=== PATIENT | female | born 1980 | race Caucasian/White ===

== ENCOUNTER → 2018-10-31 12:28 | Outpatient (CLI) | payer SELFPAY ==
[2018-10-31 14:06] LABS: Absolute Lymphocyte Count 1.45 X10^3/uL (0.83-4.51); Absolute Neutrophil Count 5.9 X10^3/uL (2.0-7.7); Basophil# 0.06 X10^3/uL; Basophil% 0.7 % (0-1); Eosinophil# 0.09 X10^3/uL; Eosinophils% 1.1 % (0-5); Hematocrit 40.5 % (37-47); Hemoglobin 13.2 g/dL (12.0-15.0); Lymphocyte # 1.45 X10^3/ul (4.0); Lymphocyte % 17.9 % (19-41); Mean Corp Hgb Conc 32.6 g/dL (32-36); Mean Corpuscular Hgb 28.1 pg (27.0-32.0); Mean Corpuscular Volume 86.2 fL (81-99); Mean Platelet Vol. 9.7 fl (6.2-12.0); Monocyte# 0.55 X10^3/uL; Monocyte% 6.8 % (0-10); NRBC Flagged by Analyzer 0 % (0-5); Neutrophil # 5.93 X10^3/uL (2.7-7.7); Neutrophil % 73.1 % (47-70); Platelet Count 326 K/mm3 (150-450); RBC Distribution Width CV 12.5 % (11.6-14.6); RBC Distribution Width SD 39.4 fl (35.1-43.9); White Blood Count 8.1 K/mm3 (4.4-11.0)
[2018-10-31 14:22] LABS: Vitamin D,25 Hydroxy 28.3 ng/mL (29.95-100.01)
[2018-10-31 14:29] LABS: ALB/GLOB Ratio 0.9 RATIO (0.9-2.4); AST(SGOT) 9 U/L (15-37); Alanine Aminotransfer ALT/SGPT 20 U/L (13-56); Albumin, Serum 3.8 g/dL (3.2-5.0); Alkaline Phosphatase 93 U/L (45-117); Anion Gap 2 (5-15); BUN 14 mg/dL (7-18); BUN/Creat Ratio 17.5 RATIO (10-20); Calcium,Total 8.6 mg/dL (8.5-10.1); Chloride 108 mmol/L (98-107); Cholesterol 194 mg/dL (200); EST Glomerular Filtration Rate 85 mL/min (>60); Est Glom Filt Rate - Afr Amer 103 mL/min (>60); Globulin 4.1 g/dL (2.2-4.2); Glucose 85 mg/dL (74-106); High Density Lipoprotein 76 mg/dL; Potassium 3.8 mmol/L (3.5-5.1); Protein, Total 7.9 g/dL (6.4-8.2); Sodium Level 139 mmol/L (136-145); Thyroid Stim Hormone (TSH) 1.14 uIU/mL (0.358-3.74); Triglycerides 47 mg/dL; Very Low Density Lipoprotein 9 mg/dL (5-40)
== END ==
DX: F33.2 Major depressive disorder, recurrent severe without psychotic features (principal); F41.1 Generalized anxiety disorder
CPT/HCPCS: 36415; 80053; 80061; 82306; 84443; 85025

== ENCOUNTER → 2020-04-19 13:03 | Outpatient (CLI) | payer SELFPAY ==
[2018-11-19 11:51] VITALS: BMI 29.2
[2020-04-19 15:32] LABS: Absolute Lymphocyte Count 1.43 X10^3/uL (0.83-4.51); Absolute Neutrophil Count 4.3 X10^3/uL (2.0-7.7); Basophil# 0.07 X10^3/uL; Basophil% 1.1 % (0-1); Eosinophil# 0.08 X10^3/uL; Eosinophils% 1.2 % (0-5); Hematocrit 43.1 % (37-47); Hemoglobin 14.2 g/dL (12.0-15.0); Lymphocyte # 1.43 X10^3/ul (4.0); Lymphocyte % 22.3 % (19-41); Mean Corp Hgb Conc 32.9 g/dL (32-36); Mean Corpuscular Hgb 28.7 pg (27.0-32.0); Mean Corpuscular Volume 87.1 fL (81-99); Mean Platelet Vol. 9.4 fl (6.2-12.0); Monocyte# 0.49 X10^3/uL; Monocyte% 7.6 % (0-10); NRBC Flagged by Analyzer 0 % (0-5); Neutrophil # 4.32 X10^3/uL (2.7-7.7); Neutrophil % 67.3 % (47-70); Platelet Count 344 K/mm3 (150-450); RBC Distribution Width CV 12.8 % (11.6-14.6); RBC Distribution Width SD 40.4 fl (35.1-43.9); Red Blood Count 4.95 M/mm3 (4.2-5.4); White Blood Count 6.4 K/mm3 (4.4-11.0)
[2020-04-19 15:56] LABS: Vitamin B12 518 pg/mL (211-911); Vitamin D,25 Hydroxy 62.2 ng/mL
[2020-04-19 16:04] LABS: ALB/GLOB Ratio 1.1 RATIO (0.9-2.4); AST(SGOT) 8 U/L (15-37); Alanine Aminotransfer ALT/SGPT 20 U/L (13-56); Albumin, Serum 3.8 g/dL (3.2-5.0); Alkaline Phosphatase 71 U/L (45-117); Anion Gap 4 (5-15); BUN 12 mg/dL (7-18); BUN/Creat Ratio 15.4 RATIO (10-20); Calcium,Total 8.7 mg/dL (8.5-10.1); Chloride 105 mmol/L (98-107); Creatinine, Serum 0.78 mg/dL (0.55-1.02); EST Glomerular Filtration Rate 87 mL/min (>60); Est Glom Filt Rate - Afr Amer 105 mL/min (>60); Free T3 2.8 pg/mL (2.18-3.98); Globulin 3.6 g/dL (2.2-4.2); Glucose 76 mg/dL (74-106); Potassium 3.9 mmol/L (3.5-5.1); Protein, Total 7.4 g/dL (6.4-8.2); Sodium Level 140 mmol/L (136-145); T4 Free Direct 0.86 ng/dL (0.76-1.46); Thyroid Stim Hormone (TSH) 1.06 uIU/mL (0.358-3.74)
[2020-04-21 10:12] LABS: Thyroid Peroxidase AB < 9 IU/mL (0-34)
== END ==
DX: F33.1 Major depressive disorder, recurrent, moderate (principal)
CPT/HCPCS: 36415; 80053; 82306; 82607; 84439; 84443; 84481; 85025; 86376

== ENCOUNTER → 2020-08-01 11:03 | Outpatient (CLI) | payer MEDICARE, SELFPAY ==
[2018-11-19 11:51] VITALS: BMI 29.2
== END ==
PROVIDERS: Referring Provider Family Medicine; Visit Provider Family Medicine
DX: Z20.828 Contact with and (suspected) exposure to other viral communicable diseases (principal)
CPT/HCPCS: 87635; U0005; U0003

== ENCOUNTER 2023-01-12 11:57 | Emergency (ER) | payer OTHER, SELFPAY ==
[2023-01-12 11:58] VITALS: BP 148/92; PULSE 77; RESP 16; TEMP 36.7; O2SAT 98; BMI 32.9
--- NOTE | 2023-01-12 12:12 | EX.ED.DYSGE1 ---
HPI <SARABJIT Celestin - Last Filed: 01/12/23 12:16> History of Present Illness Chief Complaint: Back Narrative Narrative: Patient is a 42-year-old female history of depression who presents to the emergency department with right lower back pain. 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 Patient states over the last 24 hours, she is been having some pain, hurts more with rotation. Secondary to this happening at work, she is here for evaluation. She denies any fall, trauma, radiating pain down her legs, bowel or bladder incontinence. PFSH <SARABJIT Celestin - Last Filed: 01/12/23 12:16> PFSH Medical History (Updated 01/12/23 @ 12:15 by SARABJIT Celestin) Anemia Fatigue Home Medications cyclobenzaprine 10 mg tablet 10 mg PO HS PRN muscle spasm #14 tabs 11/12/18 [Rx Last Taken Unknown] desvenlafaxine 50 mg tablet,extended release 24 hour 50 mg PO DAILY 11/12/18 [History Last Taken Unknown] mirtazapine 15 mg tablet (Remeron) 15 mg PO DAILY 11/12/18 [History Last Taken Unknown] prednisone 20 mg tablet 20 mg PO DAILY #18 tabs 11/12/18 [Rx Last Taken Unknown] naproxen 500 mg tablet (Naprosyn) 500 mg PO BID PRN pain #20 tabs 01/12/23 [Rx Last Taken Unknown] Allergy/AdvReac Type Severity Reaction Status Date / Time Antihistamines - Alkylamine Allergy Unknown Verified 11/19/18 11:51 Penicillins Allergy Unknown Verified 11/19/18 11:51 Surgical History History of dental surgery Hx of LASIK Social History (Updated 11/19/18 @ 13:02 by Taye BO, PA) Smoking Status: Never smoker alcohol intake: never ROS <SARABJIT Celestin - Last Filed: 01/12/23 12:16> ROS ED ROS Narrative Constitutional: Negative for fever, chills, weight loss, weakness Eyes: Negative for vision loss, vision change, double vision ENT: Negative for any sore throat, ear pain, congestion Cardiovascular: Negative for any chest pain, tightness, palpitations Respiratory: Negative for any cough, sputum production, hemoptysis, dyspnea, dyspnea on exertion, orthopnea Gastrointestinal: Negative for any abdominal pain, nausea, vomiting, diarrhea, constipation, blood in stool, blood in vomit : Negative for any urinary frequency, dysuria, retention, blood in urine Muscle skeletal: Negative for any myalgias, arthralgias, neck pain. Positive for right lower back pain Neurological: Negative for any headache, syncope, numbness or tingling, dizziness Skin: Negative for any rashes, lumps, itching, abrasions, lacerations Psychiatric: Negative for any depression, anxiety, stress, suicidal ideation, homicidal ideation Hematologic: Negative for any easy bruising, excessive bruising, easy bleeding Allergies: Negative for any eczema, hives, rash EXAM <SARABJIT Celestin - Last Filed: 01/12/23 12:16> Physical Exam Narrative Exam Narrative: Vital signs reviewed. HEET: Head normocephalic atraumatic, TMs clear bilaterally. Posterior pharynx is clear, moist mucous membranes. Nares clear bilaterally. Neck: Supple with no lymphadenopathy or tenderness. No signs of meningismus. Cardiac: Regular rate and rhythm no murmurs gallops or rubs, equal peripheral pulses bilaterally. Respiratory: Lungs clear to auscultation bilaterally. No chest tenderness. Abdomen: Soft, nontender, nondistended. No abdominal bruit or pulsatile masses. No hepatosplenomegaly Extremities: No peripheral edema, no signs of gross trauma or deformity. Active full range of motion of all extremities. Neuro: Cranial nerves II through XII intact, no focal neurological deficits. Skin: Clean dry and intact with no rash, purpura, petechiae, vesicles or pustules. Backs/flank: No CVA tenderness, no midline spinal tenderness, no deformity. Patient has full range of motion. Patient is more significant pain to the right lower back on rotation to the right and left, minimal on flexion or extension. There is no radiation of the pain. Psych: Normal mood and affect. No SI, HI or acute psychosis. Const Vital Signs: 01/12/23 11:58 Temperature 98.1 F Temperature Source Temporal Pulse Rate 77 Respiratory Rate 16 Blood Pressure 148/92 H Blood Pressure Mean 110 Pulse Ox 98 Oxygen Delivery Method Room Air <Dr. Frank Hernandez, - Last Filed: 01/12/23 12:35> Physical Exam Const Vital Signs: 01/12/23 11:58 Temperature 98.1 F Temperature Source Temporal Pulse Rate 77 Respiratory Rate 16 Blood Pressure 148/92 H Blood Pressure Mean 110 Pulse Ox 98 Oxygen Delivery Method Room Air [facility] <DAVEY CelestinC - Last Filed: 01/12/23 12:16> [facility] Treatment and Re-Evaluation :: Patient appears generally well, patient appears nontoxic, vital signs are stable. 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 Differential diagnose includes lumbar strain, lumbar radiculopathy, cauda equina disease, lumbar fracture. There is low suspicion for any fracture because the patient had no trauma. Patient's physical examination is consistent with a lumbar strain. I do believe that the strain is minimal as well. Patient will be given a prescription for naproxen. She instructed to ice, heat, perform gentle stretching. 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 All questions are answered, paperwork filled out, stable for discharge <Dr. Frank Hernandez, - Last Filed: 01/12/23 12:35> [facility] Narrative Medical decision making narrative: Patient appears generally well, patient appears nontoxic, vital signs are stable. 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 Differential diagnose includes lumbar strain, lumbar radiculopathy, cauda equina disease, lumbar fracture. There is low suspicion for any fracture because the patient had no trauma. Patient's physical examination is consistent with a lumbar strain. I do believe that the strain is minimal as well. Patient will be given a prescription for naproxen. She instructed to ice, heat, perform gentle stretching. 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 All questions are answered, paperwork filled out, stable for discharge This patient was seen with a PA/SWIMMING TEACHER Individually assessed they patient including history and physical. I have reviewed everything on the chart that is available and agree with the documentation provided by the PA/SWIMMING TEACHER including discussion about the assessment, treatment plan, discussion, and return precautions. Patient presenting with right lower back pain. 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 This most likely a lumbar strain. She was sent to the ED out of concern for possible need for x-ray although I do not believe she needs one and the patient herself does not believe she is an x-ray. She will be treated symptomatically with NSAIDs. She works as needed and does not want any work restrictions or work note. Home care discussed with her at length. Impression: #1 lumbar strain Discharge Plan Triage Chief Complaint: Back ED Midlevel Provider: Jeramy Oliva ED Provider: Frank Hernandez Dx/Rx/DC Orders Clinical Impression: Lumbar strain Instructions: Understanding Lumbosacral Strain, Lumbar Stretch (Flexibility) Prescriptions: New naproxen [Naprosyn] 500 mg tablet 500 mg PO BID PRN (Reason: pain) Qty: 20 0RF No Action desvenlafaxine 50 mg tablet extended release 24 hr 50 mg PO DAILY mirtazapine [Remeron] 15 mg tablet 15 mg PO DAILY prednisone 20 mg tablet 20 mg PO DAILY Qty: 18 0RF Rx Instructions: 3 tablets daily for 3 days, then 2 tablets daily for 3 days, then 1 tablet daily for 3 days cyclobenzaprine 10 mg tablet 10 mg PO HS PRN (Reason: muscle spasm) Qty: 14 0RF Primary Care Provider: Care Physician,No Primary Referrals: Care Physician,No Primary [Primary Care Provider] - Clinic,NOW [Non-Staff] - Activity Restrictions/Additional Instructions: Please perform gentle stretching, ice and heat Disposition Disposition: Home, Self Care Discharge Date/Time: 01/12/23 12:28
== END 2023-01-12 12:28 | disposition home or self-care (01) ==
LOC: ED 12:20
PROVIDERS: Emergency Provider Student in an Organized Health Care Education/Training Program; Visit Provider Student in an Organized Health Care Education/Training Program
DX: S39.012A Strain of muscle, fascia and tendon of lower back, initial encounter (principal); X58.XXXA Exposure to other specified factors, initial encounter
CPT/HCPCS: 99282